=== PATIENT | female | born 1980 | race Two or more races ===

== ENCOUNTER 2020-06-01 12:30 | Inpatient (IN) | payer OTHER ==
[~2020-06-01] VITALS: Ht 149.9 cm; Wt 86.2 kg
[2020-06-09] MEDS ORDERED: PRENATAL CAPLE1 EAC1 PO (23:18)
[2020-06-13] MEDS ORDERED: LEVO-T25 MCG PO (07:59)
== END 2020-06-13 13:23 | DRG 788 ==
LOC: EDSTATUS 12:30 → OB/GYN 06-10 08:33 → LDR 06-10 08:33 → O/R 06-11 01:04 → OB/GYN 06-11 01:18
PROVIDERS: ADMIT Obstetrics & Gynecology; ATTEND Obstetrics & Gynecology
PROC: 4A1HXCZ Monitoring of Products of Conception, Cardiac Rate, External Approach (ICD-10-PCS; 2020-06-10)
PROC: 10D00Z1 Extraction of Products of Conception, Low, Open Approach (ICD-10-PCS; principal; 2020-06-10 22:00)
DX: O82 Encounter for cesarean delivery without indication (principal); O33.8 Maternal care for disproportion of other origin; Z3A.39 39 weeks gestation of pregnancy; Z22.330 Carrier of Group B streptococcus; Z37.0 Single live birth

== ENCOUNTER 2020-06-09 23:01 | Outpatient (CLI) | payer OTHER ==
[2020-06-09] MEDS ORDERED: PRENATAL CAPLE1 EAC1 PO (23:18)
== END 2020-06-10 08:32 | disposition still patient (30) ==
LOC: OBS/DEL 23:01
PROVIDERS: ATTEND Obstetrics & Gynecology
DX: O47.1 False labor at or after 37 completed weeks of gestation (principal)